=== PATIENT | female | born 1980 ===

== ENCOUNTER 2017-02-16 12:10 | Emergency (ER) | payer BC ==
[2017-02-16 12:17] VITALS: BP 117/79
--- NOTE | 2017-02-16 12:35 | UC ---
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 SHE FELT AND HEARD A POP. PRASANNA TAPED IT FOR A FEW WEEKS THINKING IT WOULD GET BETTER BUT PAIN HAS PERSISTED. NO SWELLING OR OBVIOUS DEFORMITY. - History Of Current Complaint Chief Complaint: UCUpperExtremity Stated Complaint: FINGER INJURY Time Seen by Provider: 02/16/17 12:31 Hx Obtained From: Patient Hx Last Menstrual Period: IUD Onset/Duration: Sudden Onset, Lasting Weeks, Still Present Severity Initially: Mild Severity Currently: Mild Pain Intensity: 2 Pain Scale Used: 0-10 Numeric Character Of Pain: Sharp Aggravating Factor(s): Movement, Flexion, Extension, Pulling Alleviating: Rest Associated Signs And Symptoms: Positive: Negative Related History: Dominant Hand Right - Allergies/Home Medications Allergies/Adverse Reactions: Allergies Allergy/AdvReac Type Severity Reaction Status Date / Time Codeine Allergy Severe Difficulty Verified 02/16/17 12:17 Breathing Iodinated Contrast Media Allergy Intermediate Hives Verified 02/16/17 12:17 [CONTRAST DYE] Penicillins Allergy Intermediate Hives Verified 02/16/17 12:17 Avoids benadryl due to long Allergy See Comment Uncoded 02/16/17 12:17 QT synd PMH/Surg Hx/FS Hx/Imm Hx Other Cardiovascular History: LONG QT SYNDROME - Surgical History Surgical History: Yes Surgery Procedure, Year, and Place: cardiac defibrillator placed 2014, C section 2006 - Family History Known Family History: Positive: Hypertension - Social History Alcohol Use: Occasionally Substance Use Type: None Smoking Status (MU): Never Smoked Tobacco Review of Systems Constitutional: Negative Skin: Negative Respiratory: Negative Cardiovascular: Negative Gastrointestinal: Negative Musculoskeletal: Arthralgia, Decreased ROM All Other Systems Reviewed And Are Negative: Yes Physical Exam Triage Information Reviewed: Yes Appearance: Well-Appearing, No Pain Distress, Well-Nourished Vital Signs: Initial Vital Signs Temp 97.4 F 02/16/17 12:13 Pulse 59 02/16/17 12:13 Resp 18 02/16/17 12:13 BP 117/79 02/16/17 12:13 Pulse Ox 100 02/16/17 12:13 Vital Signs Reviewed: Yes Eyes: Positive: Conjunctiva Clear ENT: Positive: Hearing grossly normal Neck: Positive: Supple Respiratory: Positive: No respiratory distress, No accessory muscle use Cardiovascular: Positive: Pulses Normal Abdomen Description: Positive: Soft Musculoskeletal: Positive: No Edema, ROM Limited @ - RIGHT 3RD FINGER, Other: - PAIN WITH VARUS AND VALGUS MANEUVERS AND WITH FLEXION AND HYPEREXTENSION. NO PAIN WITH PALPATION Neurological: Positive: Alert Psychological: Positive: Age Appropriate Behavior Skin: Negative: rashes Diagnostics - Radiology RIGHT 3RD FINGER XRAY Xray Interpretation: No Acute Changes Radiology Interpretation Completed By: Radiologist Hand/Wrist Course/Dx - Differential Dx/Diagnosis Provider Diagnoses: RIGHT 3RD FINGER SPRAIN Discharge - Discharge Plan Condition: Stable Disposition: HOME Patient Education Materials: Finger Sprain (ED) Referrals: Luan Oliveros MD [Medical Doctor] - If Needed Jerzy Barragan DO [Primary Care Provider] - If Needed Additional Instructions: NO FRACTURE OR DISLOCATION SEEN ON XRAY TODAY. LIKELY LIGAMENTOUS INJURY. RECOMMEND SPLINTING WHILE SLEEPING AND AT REST. SLOW RANGE OF MOTION AND STRETCHING DAILY TO PREVENT STIFFENING UP. OTC ANALGESICS NEEDED. FOLLOW-UP ORTHO IF NOT IMPROVING OVER THE NEXT SEVERAL WEEKS.
--- NOTE | 2017-02-16 12:54 | RAD ---
HISTORY: Right middle finger pain, remote trauma COMPARISONS: None VIEWS: 3, Frontal, lateral, and oblique views of the third digit of the right hand FINDINGS: BONE DENSITY: Normal. BONES: There is no displaced fracture. JOINTS: There is no arthropathy. ALIGNMENT: There is no dislocation. SOFT TISSUES: Unremarkable. OTHER FINDINGS: None. IMPRESSION: NO ACUTE OSSEOUS INJURY. IF SYMPTOMS PERSIST, RECOMMEND REPEAT IMAGING.
== END 2017-02-16 13:22 | disposition home or self-care (01) ==
LOC: UCEAST 12:10
DX: I45.81 Long QT syndrome (principal); Z95.810 Presence of automatic (implantable) cardiac defibrillator; S63.612A Unspecified sprain of right middle finger, initial encounter; W23.0XXA Caught, crushed, jammed, or pinched between moving objects, initial encounter; Y93.89 Activity, other specified; Y92.9 Unspecified place or not applicable; Y99.9 Unspecified external cause status
CPT/HCPCS: 73140; 99211; G0463

== ENCOUNTER 2017-04-12 14:50 | Emergency (ER) | payer BC ==
[2017-04-12 14:55] VITALS: BP 139/87
--- NOTE | 2017-04-12 14:55 | ED ---
Headache - HPI Summary HPI Summary: 37 YEAR OLD FEMALE WITH A HISTORY OF MIGRAINE HEADACHES POINT PRESENTS WITH ONGOING HEADACHE NOT RELIEVED BY TYLENOL OR IBUPROFEN. SHE ALSO POINT TENDERNESS OVER C-7. - History Of Current Complaint Stated Complaint: NECK PAIN Time Seen by Provider: 04/12/17 14:55 Hx Obtained From: Patient Hx Last Menstrual Period: IUD Onset/Duration: Gradual Onset Initially Headache Was: Initial Pain Scale(0-10)= - 5 Timing: Constant Character: Sharp, Pressure Location of Headache: Occipital Aggravating Factor: Nothing Allevating Factors: Nothing Associated Signs And Symptoms: Negative - Risk Factors SAH Risk Factors: Negative Meningitis Risk Factors: Negative SDH Risk Factors: Negative Temporal Arteritis Risk Factors: Negative - Allergies/Home Medications Allergies/Adverse Reactions: Allergies Allergy/AdvReac Type Severity Reaction Status Date / Time Codeine Allergy Severe Difficulty Verified 04/12/17 14:55 Breathing Iodinated Contrast Media Allergy Intermediate Hives Verified 04/12/17 14:55 [CONTRAST DYE] Penicillins Allergy Intermediate Hives Verified 04/12/17 14:55 Avoids benadryl due to long Allergy See Comment Uncoded 04/12/17 14:55 QT synd PMH/Surg Hx/FS Hx/Imm Hx Previously Healthy: Yes Endocrine/Hematology History: Denies: Hx Diabetes, Hx Thyroid Disease Cardiovascular History: Denies: Hx Hypertension Respiratory History: Denies: Hx Asthma, Hx Chronic Obstructive Pulmonary Disease (COPD) GI History: Denies: Hx Ulcer - Surgical History Surgery Procedure, Year, and Place: cardiac defibrillator placed 2014, C section 2006 Infectious Disease History: Denies: Hx Clostridium Difficile, Hx Hepatitis, Hx Human Immunodeficiency Virus (HIV), Hx of Known/Suspected MRSA, Hx Shingles, Hx Tuberculosis, Hx Known/ Suspected VRE, Hx Known/Suspected VRSA, History Other Infectious Disease - Family History Known Family History: Positive: Hypertension - Social History Alcohol Use: Occasionally Substance Use Type: Reports: None Smoking Status (MU): Never Smoked Tobacco Review of Systems Constitutional: Negative Eyes: Negative ENT: Negative Cardiovascular: Negative Respiratory: Negative Gastrointestinal: Negative Genitourinary: Negative Musculoskeletal: Negative Skin: Negative Positive: Headache Psychological: Normal All Other Systems Reviewed And Are Negative: Yes Physical Exam Triage Information Reviewed: Yes Vital Signs Reviewed: Yes Appearance: Positive: Ill-Appearing Skin: Positive: Warm Head/Face: Positive: Normal Head/Face Inspection Eyes: Positive: Normal ENT: Positive: Normal ENT inspection Respiratory/Lung Sounds: Positive: Clear to Auscultation Cardiovascular: Positive: Normal Abdomen Description: Positive: Nontender Musculoskeletal: Positive: Normal Neurological: Positive: Normal Psychiatric: Positive: Normal Headache Course/Dx - Diagnoses Provider Diagnoses: Back spasm Discharge - Discharge Plan Condition: Stable Disposition: HOME Prescriptions: Methocarbamol TAB* [Robaxin 500 MG TAB*] 500 mg PO TID PRN #30 tab PRN Reason: Spasms Patient Education Materials: Muscle Spasm (ED) Referrals: Jerzy Barragan DO [Primary Care Provider] -
--- NOTE | 2017-04-12 15:23 | RAD ---
HISTORY: C7 tenderness COMPARISONS: None VIEWS: 5, Frontal, lateral, open-mouth odontoid, and bilateral oblique views of the cervical spine. FINDINGS: The cervical spine is visualized from the skull base through T1. ALIGNMENT: There is straightening of the normal cervical lordosis. VERTEBRAL BODIES: The odontoid process is intact. The atlantoaxial intervals are symmetric. There is mild anterolateral marginal osteophyte formation. JOINTS: There is no subluxation or dislocation. The facet joints are unremarkable. There is no osseous neural foraminal narrowing on the oblique views. INTERVERTEBRAL DISCS: There is diffuse loss of intervertebral disc height. SOFT TISSUE: The prevertebral soft tissues are normal. OTHER: The skull base is normal. The lung apices are clear. IMPRESSION: STRAIGHTENING OF THE CERVICAL LORDOSIS. MILD DEGENERATIVE DISC DISEASE.
== END 2017-04-12 15:33 | disposition home or self-care (01) ==
LOC: UCEAST 14:50
DX: M62.830 Muscle spasm of back (principal); M54.2 Cervicalgia; G43.909 Migraine, unspecified, not intractable, without status migrainosus; Z95.810 Presence of automatic (implantable) cardiac defibrillator; Z88.5 Allergy status to narcotic agent; Z88.0 Allergy status to penicillin; Z91.041 Radiographic dye allergy status
CPT/HCPCS: 72050; 99212; G0463